=== PATIENT | male | born 1970 | race Caucasian/White ===

== ENCOUNTER 2023-10-18 22:30 | Emergency (ER) | payer OTHER ==
[~2023-10-18] VITALS: Ht 172.7 cm; Wt 87.5 kg
[2023-10-18 23:19] VITALS: BP 115/80; PULSE 67; RESP 18; TEMP 96.7; O2SAT 99
[2023-10-19 03:12] LABS: BASOPHILS # (AUTO) 0.1 K/uL (0.00-0.22); BASOPHILS % (AUTO) 0.9 % (0.0-2.0); EOSINOPHILS # (AUTO) 0.2 K/uL (0-0.4); EOSINOPHILS % (AUTO) 2.3 % (0.0-4.0); HEMOGLOBIN 14.5 g/dL (12.0-18.0); LYMPHOCYTES # (AUTO) 2.7 K/uL (2.0-11.5); LYMPHOCYTES % (AUTO) 40.6 % (20.5-51.1); MEAN CORPUSCULAR HEMOGLOBIN 30 pg (27-31); MEAN CORPUSCULAR HGB CONC 34 g/dL (33-37); MEAN CORPUSCULAR VOLUME 90.3 fL (80-94); MONOCYTES # (AUTO) 0.8 K/uL (0.8-1.0); MONOCYTES % (AUTO) 11.9 % (1.7-9.3); NEUTROPHILS % (AUTO) 44.3 % (42.2-75.2); PLATELET COUNT (AUTO) 224 K/uL (140-450); RED BLOOD CELL COUNT(AUTO) 4.76 MIL/uL (4.20-6.10); RED CELL DISTRIBUTION WIDTH 14.1 % (11.6-13.7); WHITE BLOOD COUNT (AUTO) 6.7 K/uL (4.8-10.8)
[2023-10-19 03:45] LABS: ALANINE AMINOTRANSFERASE 34 U/L (12-78); ALBUMIN 3.8 g/dL (3.4-5.0); ALKALINE PHOSPHATASE 53 U/L (50-136); ANION GAP 13.1 (8-16); ASPARTATE AMINOTRANSFERASE 20 U/L (15-37); CALCIUM 8.6 mg/dL (8.5-10.1); CARBON DIOXIDE 27.7 mmol/L (21-32); CHLORIDE 105 mmol/L (98-107); GFR ARICAN-AMERICAN 101 mL/min (>90); GFR NON ARICAN-AMERICAN 83 mL/min (>90); GLUCOSE 105 mg/dL (74-106); LIPASE 232 U/L (16-77); POTASSIUM 3.8 mmol/L (3.5-5.1); SODIUM SERUM 142 mmol/L (136-145); TOTAL BILIRUBIN 0.6 mg/dL (0.0-1.0); TOTAL PROTEIN, SERUM 6.9 g/dL (6.4-8.2); UREA NITROGEN, BLOOD 20 mg/dL (7-18)
[2023-10-19] MEDS ORDERED: NAPR-337 PO (04:24)
[2023-10-19 04:36] VITALS: BP 116/80; PULSE 68; RESP 18; TEMP 97; O2SAT 99
== END 2023-10-19 04:36 | disposition home or self-care (01) ==
LOC: MED 22:30
DX: R07.9 Chest pain, unspecified (principal); R00.2 Palpitations; Z79.899 Other long term (current) drug therapy
CPT/HCPCS: 36415; 71045; 80053; 83690; 84484; 85025; 93005; 99285